=== PATIENT | male | born 1960 | race Caucasian/White ===

== ENCOUNTER 2018-10-07 08:30 | Day surgery (SDC) | payer OTHER ==
[~2018-10-07 08:30] MED LIST: COZAAR25 MG; LISINOPRIL2.5 MG
== END 2018-10-07 12:20 | disposition home or self-care (01) ==
LOC: AMB-ENDOS 08:30
DX: K57.30 Diverticulosis of large intestine without perforation or abscess without bleeding (principal)

== ENCOUNTER 2022-07-18 10:45 | Outpatient (CLI) | payer OTHER | END 2022-07-18 13:07 | disposition home or self-care (01) | LOC: LAB 10:45 | PROVIDERS: ATTEND Urology | DX: R97.20 Elevated prostate specific antigen [PSA] (principal) ==

== ENCOUNTER → 2022-07-27 | Outpatient (CLI) | payer OTHER | END | disposition home or self-care (01) | LOC: SONOGRAMA 07:11 | PROVIDERS: ATTEND Urology | DX: D29.1 Benign neoplasm of prostate (principal); N41.1 Chronic prostatitis; R97.20 Elevated prostate specific antigen [PSA] ==

== ENCOUNTER 2023-12-11 05:32 | Day surgery (SDC) | payer OTHER ==
[2023-12-04 09:20] LABS: HEMATOCRIT 43.1 % (39.0-48.0); MEAN CELL VOLUME 87.6 fL (80.0-100.00); MEAN CORPUSCULAR HEMOGLOBIN 30.4 pg (27.00-32.0); MEAN CORPUSCULAR HGB CONC 34.7 g/dl (32.0-36.0); PLATELET COUNT 244 K/uL (150-450); RED BLOOD COUNT 4.92 M/uL (4.00-6.00); RED CELL DISTRIBUTION WIDTH 13.1 % (11.5-14.5)
[2023-12-04 09:38] LABS: INR 1.03; PARTIAL THROMBOPLASTIN TIME 28.7 SECONDS (22.0-34.0); PROTHROMBIN TIME 11.2 SECONDS (9.0-11.5)
[2023-12-04 09:48] LABS: URINE APPEARANCE Clear; URINE BILIRRUBIN Negative (NEGATIVE); URINE BLOOD Negative; URINE COLOR Yellow; URINE GLUCOSE Negative (NEGATIVE); URINE KETONE Negative (NEGATIVE); URINE LEUKOCYTE Negative; URINE NITRATE Negative; URINE PROTEIN Negative (NEGATIVE); URINE UROBILINOGEN 0.2 E.U./dl
[2023-12-04 09:52] LABS: URINE BACTERIA 17.6 uL (0.0-1933); URINE WBC 2.7 uL (0.0-23.2)
[2023-12-04 10:24] LABS: URINE EPITHELIAL CELLS 1.2 uL (0.0-38.8); URINE RBC 1.9 uL (0.0-20.8)
[2023-12-04 10:35] LABS: ALBUMIN 4.3 gm/dL (3.4-5.0); BILIRUBIN TOTAL 0.91 mg/dL (0.3-1.2); CALCIUM 9.4 mg/dL (8.5-10.1); CREATININE SERUM 0.84 mg/dL (0.70-1.30); GFR 91.99; GLOBULINA 2.7 G/DL (2.4-3.5); POTASSIUM 4.34 mEq/L (3.5-5.1)
[~2023-12-11 05:32] MED LIST changes: +CARBIDOPA-LEVO1 EAC9; +RASAGILINE MESYL1 MG PO
[2023-12-11] MEDS ORDERED: ENOXAPARIN SODIUM 40 MG/0.4 ML SYRINGE SUBCUTANEO ONE ×2 (06:49→08:15)
[2023-12-11] MEDS ORDERED: CEFAZOLIN SODIUM 1,000 MG VIAL ONE (06:49)
[2023-12-11] MEDS ORDERED: BUPIVACAINE HCL/MPF 0.5% 30ML VIAL ONE (06:50)
[2023-12-11] MEDS ORDERED: CEFAZOLIN SODIUM 1,000 MG VIAL IV ONE (08:15)
[2023-12-11] MEDS ORDERED: BUPIVACAINE HCL/PF 0.25% 30ML VIAL InF ONE (08:15)
[2023-12-11] MEDS ORDERED: SUGAMMADEX SODIUM 200 MG/2 ML VIAL IV ONE ×2 (08:54→09:30)
[2023-12-11] MEDS ORDERED: PERCOCET 5-3251 EACH PO (09:00)
[2023-12-11] MEDS ORDERED: NEURONTIN800 MG PO (09:00)
[2023-12-11] MEDS ORDERED: ACETAMINOPHEN325 M1 PO (09:00)
[2023-12-11] MEDS ORDERED: MIRALAX510 GM PO (09:01)
[2023-12-11] MEDS ORDERED: SURFAK240 M1 PO (09:01)
[2023-12-11] MEDS ORDERED: DOXYCYCLINE HY100 M2 PO (09:02)
== END 2023-12-11 11:55 | disposition home or self-care (01) ==
LOC: CIR.AMB 05:32
PROVIDERS: ATTEND Surgery
DX: K40.90 Unilateral inguinal hernia, without obstruction or gangrene, not specified as recurrent (principal); K42.0 Umbilical hernia with obstruction, without gangrene; G20.A1 Parkinson's disease without dyskinesia, without mention of fluctuations; E16.2 Hypoglycemia, unspecified